=== PATIENT | female | born 1940 | race Caucasian/White ===

== ENCOUNTER 2024-04-23 06:10 | Inpatient (IN) | payer MEDICARE, SELFPAY ==
[2024-04-22 09:30] VITALS: BMI 31.7
[2024-04-23] VITALS (12 sets, daily range): BP systolic 98–134; BP diastolic 56–82; PULSE 60–92; RESP 16–20; TEMP 36.3–36.8; O2SAT 93–98; BMI 30.4; BMI 33.3
--- NOTE | 2024-04-23 06:00 | DI.RAD.S_ITS ---
PROCEDURE: XR KNEE LT 1TO2V INDICATIONS: TKA TECHNIQUE: 2 view(s) of the knee acquired. COMPARISON: None. FINDINGS: Bones: Patient is status post knee joint arthroplasty. Hardware components are in expected positions. Visualized bony structures are intact. Soft tissues: Overlying postoperative changes are noted. IMPRESSION: Expected post-operative appearance of a knee arthroplasty. Dictated by: Niya Segura MD, PhD on 04/23/2024 at 11:50 Approved by: Niya Segura MD, PhD on 04/23/2024 at 11:50
[2024-04-23] MEDS: MELOXICAM 7.5 MG TABLET 15 MG PO (07:09)
[2024-04-23] MEDS: VANCOMYCIN 1,000 MG/200 ML PIGGYBACK 200 MG IV (07:10)
[2024-04-23] MEDS: ACETAMINOPHEN 325 MG TABLET 975 MG PO (07:10)
[2024-04-23] MEDS: LACTATED RINGERS 1,000 ML 42 ML IV ×2 (07:11→08:56)
--- NOTE | 2024-04-23 07:54 | P.OP_ITS ---
Operative Date/Time/Diagnoses Date of procedure: 04/23/24 Time of procedure: 08:00 Pre-op diagnosis: left knee OA, h/o left knee medial uni Post-op diagnosis: same Procedure & Clinicians Procedure: Revision left total knee arthroplasty Same procedure as scheduled: Yes Indications: The patient has a history of left knee medial unicompartment arthroplasty in the past. She now has progressively worsening left knee pain with radiographic changes consistent with arthritis in the patellofemoral and lateral compartment. Non-operative management has failed and the patient has requested revision left total knee replacement. The risks, benefits and alternatives to surgery were discussed with the patient prior to proceeding. Risks discussed included, but were not limited to, failure to relieve pain, stiffness, infection, nerve damage, deep venous thrombosis, pulmonary embolism, stroke, coma, heart attack, permanent paralysis and , as well as the potential need for eventual revision of the prosthetic. Surgeon: Veronica Restrepo Scrap Baler: Clemente Murdock Anesthesia Type: General, Spinal and Peripheral nerve block Operative Notes Findings: Severe left knee osteoarthritis, no evidence of loosening minimal unicompartment where Closure Type: primary Specimen(s): none sent Prosthetic devices, grafts, tissues, transplants, or devices: [facility] 2 size 5 femur, size 4 tibia, +11 poly, 32 x 7-1/2 mm patella Estimated Blood Loss (mL): 250 Blood products transfused: none Tourniquet time (min): 130 Procedure in detail: The patient was seen in the pre-operative area, where the patient identified the left knee as the operative site and this was marked with my initials. The patient received pre-operative antibiotics, and was taken to the operating room and placed on the operative table in the supine position. After satisfactory anesthesia, a time clock repairer out was performed. The left leg was encircled with a tourniquet about the proximal thigh, and the leg was prepared from the toes to the tourniquet with ChloroPrep in the usual fashion and draped through sterile drapes. The leg was elevated and exsanguinated with Eschmark bandage and the tourniquet inflated to [250] mmHg pressure. A PA was used during the procedure and was essential for intraoperative retraction and safe implantation of the components. The knee was approached through an approximately 18 cm incision centered over the patella and carried into the knee through a medial parapatellar arthrotomy. Portion of the medial and lateral meniscus was resected. Soft tissue was carefully mobilized around the patella the patella was measured with a caliper. Bone was resected from the patella and the patellar height was reconstituted with up an appropriate sized patellar component. A cover was then placed on the patella. A small amount of additional lateral meniscus was resected. Soft tissues around the unicompartment replacement were meticulously cleaned from unicompartment. A saw was used to lightly loosened the tibial component and the femoral component. Pins were placed for robotic navigation. A plan was taken and meticulously developed. We placed the patient through a range of motion exercise. We plotted the plan with the components on marking where the anticipated femoral resection from the medial side would be after component removal. The femoral component and tibial component were carefully removed with minimal bone loss. Deep cultures were taken from underneath the femoral component and underneath the tibial component and a mixed specimen for PCR. The robotic assisted bur was used to resect the lateral femoral condyle distal femoral cut notch region and a small portion from the medial side of the medial femoral condyle. There was some slight bone loss off of the medial side but not severe. The navigated size 5 in 1 cutting block was carefully pinned to the femur. It looked like an appropriate distal femoral cut and the cut was made without difficulty. There was some bone bone loss on the medial aspect of the femur. There was no significant bone loss for the distal femoral resection. The rotation was assessed and the appropriate size femoral guide was placed on the distal femur and finishing cuts were made. There was no evidence of notching. The anterior, posterior and chamfer cuts were then made. The posterior osteophytes and soft tissues were then removed. The posterior capsule was injected with part of a mixture of 60 ml 0.25% Marcaine mixed with 20 ml Exparel for post operative pain control. The remainder of this mixture was injected into the capsule and subcutaneous tissues during cement curing. There was a small amount of loss of bone from the medial femoral condyle distal and posterior but not significant there was an adequate posterior femoral cut on the medial side. The tibia was carefully navigated. We placed a single pin in the lateral aspect of the tibia using navigation. And then navigated the block and pinned it to the proximal tibia. Oscillating saw was used to resect tibia. Got a good quality cut on the tibia but it looked like we should probably go about 2 mm deeper in order to give a more stable base medially. The bur was used to resect an additional 2 mm of tibia. The rotation was assessed. The patient was placed in extension residual medial and lateral meniscus as well as any residual bone was carefully resected. [No] additional tibia was resected. Hemostasis was achieved especially posteriorly. Additional local was injected into the posterior capsule. The extension gap was assessed and additional releases for gap balancing were performed as necessary. It was checked with the gap chainsaw mechanic. The femoral component was trial was placed and the notch was finished. Trial tibial and femoral components were then placed and the knee placed through a range of motion. Range of motion was [0-130], with good stability throughout the range. The trials were then removed, and the tibia was finished. The bone was prepared with pulsatile lavage, and dried with a sponge. Cement was applied and the final prosthetics placed. Excess cement was removed during and after cement curing. A brief Betadine soak was performed. After confirming there was no extruded cement posteriorly, the final tibial insert was placed. The knee was copiously irrigated and the tourniquet deflated. Hemostasis was obtained with the Bovie cautery. The capsule was closed with interrupted Vicryl. The subcutaneous layer was closed with barbed sutures, and the skin with a running 3-0 V-Lock suture and skin maile. A marifer dressing was applied and the patient was taken to recovery having tolerated the procedure well. Complications: none Post-operative Condition: stable Disposition: Acute Care Plan for aftercare: The patient will be maintained on a standard total knee replacement protocol with weight bearing as tolerated. The patient will receive aspirin and sequential compression devices for DVT prophylaxis. The patient will be discharged home when safe for the home environment.
--- NOTE | 2024-04-23 08:04 | PM.PREOP ---
Pre-operative Note Interval Note History & Physical reviewed/Exam performed by Physician: Yes Changes to H&P: No
--- NOTE | 2024-04-23 08:43 | SUR.OPER ---
Supine on padded OR bed. Pillow under head, arms secured on padded armboards <90 degree abduction. Safety belt across torso. Non-operative leg secured with tape over blanket over lower leg. Operative leg secured in DeMayo/Neeraj/Nathe positioner. Foam padded brace at thigh of operative leg.
[2024-04-23] MEDS: BUPIVACAINE 0.25% (PF) 60 ML, EPINEPHrine 0.3 MG INJ (08:47)
[2024-04-23] MEDS: BUPIVACAINE LIPOSOME 266 MG/20 ML VIAL INJ (08:47)
[2024-04-23] MEDS: TRANEXAMIC ACID 1,000 MG in SODIUM CHLORIDE 0.9% 100 ML 200 MG IV ×2 (08:48→10:53)
[2024-04-23] MEDS: CEFAZOLIN 2 GM/100 ML PREMIX 100 ML IV ×2 (08:54→16:35)
[2024-04-23] MEDS: IBUPROFEN 400 MG TABLET PO ×2 (12:03→21:03)
[2024-04-23] MEDS: OXYCODONE IR 5 MG TABLET PO ×3 (12:04→21:03)
[2024-04-23] MEDS: LACTATED RINGERS 1,000 ML 100 ML IV (12:07)
--- NOTE | 2024-04-23 12:41 | PT-IP ANOTE ---
PT order received. PT reviewed chart and checked in on pt and she is eating. Will con't PT efforts later.
[2024-04-23] MEDS: ACETAMINOPHEN 325 MG TABLET 650 MG PO (12:50)
[2024-04-23] MEDS: PRAVASTATIN 20 MG TABLET PO (16:34)
--- NOTE | 2024-04-23 17:42 | PT.IIE ---
Current Diagnoses Unilateral primary osteoarthritis, left knee (04/23/24) Presence of unspecified artificial knee joint (04/23/24) Surgery Performed Operation Date: 04/23/24 07:45 Actual Procedures p Total Knee Arthroplasty Revision - Robot, all components, uni to total(Left) - Veronica Restrepo MD Surgical History (Last Reviewed 04/23/24 @ 07:06 by Rosio Gomez, RN) History of hysterectomy History of laminectomy Hx of total knee arthroplasty Status post left partial knee replacement Medical History (Last Reviewed 04/23/24 @ 07:06 by Rosio Gomez, RN) Avascular necrosis CAD (coronary artery disease) Esophageal spasm Fibromyalgia GERD (gastroesophageal reflux disease) History of colon polyps HTN (hypertension) Hyperlipidemia Hypothyroid Knee arthropathy Multiple sclerosis Nephrolithiasis Osteopenia of lumbar spine Psoriasis Rheumatoid arthritis Spinal stenosis Physical Therapy Inpatient Evaluation/Re-Eval M1 PT/OT-IP Prior Functional Status Start: 04/23/24 12:29 Freq: NEEDED Status: Active Protocol: Document 04/23/24 17:18 MB (Rec: 04/23/24 17:42 MB [id number]) Medical Review Prior Functional Status Medical History Reviewed Yes Diet/Fluid Consistency Regular Communication WNLs Mobility and Gait 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 3 steps with two rails to enter Home Environment High Toilet,Walk in Shower Home Equipment Front Wheel Walker,Straight Cane,Manual Wheelchair,Shower Seat without Backrest,Hand Held Shower,Grab Bars In Shower Employment Status Retired M2 PT-IP Current Condition Start: 04/23/24 12:29 Freq: NEEDED Status: Active Protocol: Document 04/23/24 17:18 MB (Rec: 04/23/24 17:42 MB [id number]) Physical Therapy Current Condition Current Condition Evaluation Date 04/23/24 Treatment Diagnosis Left total knee revision M3 PT-IP Subjective Start: 04/23/24 12:29 Freq: NEEDED Status: Active Protocol: Document 04/23/24 17:18 MB (Rec: 04/23/24 17:42 MB [id number]) Subjective Physical Therapy Visit Type Type Initial Evaluation Visit Start Time 17:18 Visit Stop Time 17:30 Number of HOSPITAL CHIEF EXECUTIVE OFFICER Visits 0 Physical Therapy Visit Comments Patient Comments Pt is agreeable to PT. Therapy Pain Assessment Pain When Pain Assessed At Rest Pain Present Pain Present Pain Reported Location left knee Intensity 3 Scale Used Numeric (0 - 10) M4 PT-IP Mobility and Gait Start: 04/23/24 12:29 Freq: NEEDED Status: Active Protocol: Document 04/23/24 17:18 MB (Rec: 04/23/24 17:42 [id number]) PT-Bed Mobility Assessment Supine to Sit Supine to Sit Contact Guard Assistance Scooting Scooting to Edge of Bed Contact Guard Assistance PT-Transfer Assessment Sit to and From Stand Sit to and from Stand Contact Guard Assistance,1 Person Assistance,Use of Upper Extremities Equipment Transfer Assistive Device Gait Belt,Front Wheeled Walker Orthotic/Prosthetic Devices or Brace: No Transfers Transfer Destination Toilet Transfer Technique Ambulation Transfer Ability Level of Assist Contact Guard Assistance,1 Person Assistance,Use of Upper Extremities Comments Mobility Comments Cues to push up from the bed Gait Assessment Gait Gait Assistance Required: Contact Guard Assist Distance (Feet) 25 Able to Maintain Weight Bearing Status Yes During Gait Assistive Devices Assistive Device Gait Belt,Front Wheeled Walker Orthotic/Prosthetic Devices or Brace: No Gait Deviations General Gait Pattern Antalgic,Decreased Stride Length,Flexed Trunk,Step-to Gait,Wide Based Gait Factors Limiting Gait Function Factors Limiting Gait Function Decreased Activity Tolerance, Decreased Strength,Limited Range of Motion,Poor Balance PT-Balance Assessment Sitting Balance and Reactions Static Sitting Balance Ability Good Dynamic Sitting Balance Ability Good Standing Balance and Reactions Static Standing Balance Ability Good Dynamic Standing Balance Ability Good Device Used RW M5 PT-IP Objective Assessments Start: 04/23/24 12:29 Freq: NEEDED Status: Active Protocol: Document 04/23/24 17:18 MB (Rec: 04/23/24 17:42 [id number]) Orientation Orientation/Cognition Level of Alertness Alert Orientation Name,Age,Birthday,Month,Date, Year,Day of Week,Place, Situation Language Function Ability No Deficits Noted Safety Awareness Decreased Safety Awareness Memory Description No Deficits Noted Gross Range of Motion Upper Extremity ROM Impairments Defer to OT Lower Extremity ROM Assessment Left Impaired Impairments 0-40 deg actively in hook lying and increased passive flexion with sitting Strength Comments Strength Comments RLE functional and left ankle and hip functional, quad function in left knee and no MMT left LE today Coordination Assessment Gross Coordination Gross Coordination Impaired Sensation Assessment Sensation Gross Sensation WNL Muscle Tone Muscle Tone WNL Yes M6 PT-IP Treatment Start: 04/23/24 12:29 Freq: NEEDED Status: Active Protocol: Document 04/23/24 17:18 MB (Rec: 04/23/24 17:42 MB [id number]) Physical Therapy Treatment Exercises Exercises Ankle Pumps,Gluteal Sets,Quad Sets,Heel Slides Education Education Provided Post-Op Packet,Safety M7 PT-IP Assessment and Plan Start: 04/23/24 12:29 Freq: NEEDED Status: Active Protocol: Document 04/23/24 17:18 MB (Rec: 04/23/24 17:42 MB [id number]) PT Summary Assessment and Plan Potential Rehabilitation Potential Good Status of Condition at Evaluation Evolving Summary Impairments Pain,ROM,Strength,Balance, Coordination,Bed Mobility, Transfers,Gait,Activity Tolerance Progress Towards Goals Progressing Toward Goals Assessment Summary Pt is a pleasant 83 y/o female who is doing well same day left total knee revision. She will benefit from ongoing assistance and PT to maximize I, range and function. If she is in the hospital next date, will initiate stair training and further gait. Goals Bed Mobility Goal Independent Transfer Goal Independent,Front Wheeled Walker Gait Goal Independent,Front Wheel Walker Gait Distance 150 Other Goals Pt will ascend and descend 3 steps with two rails and no more than CGA to allow safe home entry. Frequency of Treatment Frequency Of Treatment Twice a Day Treatment Plan Physical Therapy Treatment Plan Bed Mobility Training,Transfer Training,Gait Training, Therapeutic Exercise,Balance Retraining,Post Op Education, Discharge Planning,Hot or Cold Pack,Neuromuscular Re-ed, Coordination Retraining,Manual Therapy Weight Bearing Status Weight Bearing Status Weight Bear as Tolerated Recommendations To Nursing Amount of Assist Needed 1 Person Assist Discharge Recommendations PT Discharge Recommendations Home with Assistance, Outpatient PT Transportation Needs at Discharge Private Vehicle
[2024-04-23] MEDS: DOCUSATE 100 MG CAPSULE PO (21:03)
[2024-04-23] MEDS: GABAPENTIN 100 MG CAPSULE 200 MG PO (21:03)
[2024-04-23] MEDS: FAMOTIDINE 20 MG TABLET 40 MG PO (21:03)
[2024-04-23] MEDS: ASPIRIN EC 81 MG TABLET PO (21:04)
[2024-04-24] MEDS: CEFAZOLIN 2 GM/100 ML PREMIX 100 ML IV (00:08)
[2024-04-24] MEDS: LACTATED RINGERS 1,000 ML 100 ML IV (00:08)
[2024-04-24] MEDS: ACETAMINOPHEN 325 MG TABLET 650 MG PO ×2 (00:12→08:21)
--- NOTE | 2024-04-24 02:23 | PC.NURSE ---
Addendum entered by Katie Whyte R.N. 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 Pain in left knee controlled w/ ordered pain medications. CMS intact. 1 PA w/ FWW to bathroom. Patient denies dizziness, nausea, SOB, CP. Patient behavior has been erratic, will raise voice at staff members at times and raise hand gestures to staff members' faces. Patient was found to be slid down and sideways in bed, when this RN offered to boost patient up in bed patient was agreeable, however questioned this RN when asked for assistance from another staff member. Patient stated why do you need help? are you too weak?, when explaining body mechanics to patient, patient stated the day shift people didn't need anyone. Repositioned for comfort, all needs met at this time. SCDs are on. Fall precautions in place. Oriented to call-light. Plan of care ongoing.
[2024-04-24 03:40] VITALS: BP 105/55; PULSE 67; RESP 19; TEMP 36.8; O2SAT 94
[2024-04-24] MEDS: OXYCODONE IR 10 MG TABLET PO ×2 (04:55→08:20)
[2024-04-24 06:21] LABS: Hematocrit 28.1 % (36-46); Hemoglobin 9.9 g/dL (12.0-16.0)
[2024-04-24 07:00] VITALS: BP 92/60; PULSE 104; RESP 16; TEMP 36.7; O2SAT 98
[2024-04-24] MEDS: GABAPENTIN 100 MG CAPSULE 200 MG PO (08:20)
[2024-04-24] MEDS: IBUPROFEN 400 MG TABLET PO (08:20)
[2024-04-24] MEDS: DOCUSATE 100 MG CAPSULE PO (08:20)
[2024-04-24] MEDS: LEVOTHYROXINE 100 MCG TABLET 200 MCG PO (08:20)
[2024-04-24] MEDS: FAMOTIDINE 20 MG TABLET 40 MG PO (08:21)
[2024-04-24] MEDS: ASPIRIN EC 81 MG TABLET PO (08:21)
[2024-04-24] MEDS: CHOLECALCIFEROL (VITAMIN D3) 1,000 UNIT TABLET 2000 UNIT PO (08:21)
--- NOTE | 2024-04-24 09:35 | PT.IPTN ---
Current Diagnoses Unilateral primary osteoarthritis, left knee (04/23/24) Presence of unspecified artificial knee joint (04/23/24) Surgery Performed Operation Date: 04/23/24 07:45 Actual Procedures p Total Knee Arthroplasty Revision - Robot, all components, uni to total(Left) - Veronica Restrepo MD Physical Therapy Treatment Note M2 PT-IP Current Condition Start: 04/23/24 12:29 Freq: NEEDED Status: Active Protocol: Document 04/23/24 17:18 MB (Rec: 04/23/24 17:42 MB [id number]) Physical Therapy Current Condition Current Condition Evaluation Date 04/23/24 Treatment Diagnosis Left total knee revision M3 PT-IP Subjective Start: 04/23/24 12:29 Freq: NEEDED Status: Active Protocol: Document 04/24/24 10:53 TS (Rec: 04/24/24 11:01 TS [id number]) Subjective Physical Therapy Visit Type Type Treatment Note Visit Start Time 09:35 Visit Stop Time 10:05 Number of WINDOWS 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 Therapy Pain Assessment Pain When Pain Assessed At Rest Pain Present Pain Present Pain Reported M4 PT-IP Mobility and Gait Start: 04/23/24 12:29 Freq: NEEDED Status: Active Protocol: Document 04/24/24 10:53 TS (Rec: 04/24/24 11:01 TS [id number]) PT-Transfer Assessment Sit to and From Stand Sit to and from Stand Contact Guard Assistance,1 Person Assistance,Use of Upper Extremities Equipment Transfer Assistive Device Gait Belt,Front Wheeled Walker Orthotic/Prosthetic Devices or Brace: No Comments Mobility Comments STS from chair CGA with FWW. She ambulates ~250'SBA with FWW. She performs stairs x3 with b handrails and SBA/CGA. Pt ambulates back to room. She was instructed in ther-ex. Pt was left in room, all needs met. Gait Assessment Gait Gait Assistance Required: Standby Assistance Distance (Feet) 250 Assistive Devices Assistive Device Gait Belt,Front Wheeled Walker Gait Deviations General Gait Pattern Antalgic,Decreased Stride Length,Flexed Trunk,Step-to Gait,Wide Based Gait Factors Limiting Gait Function Factors Limiting Gait Function Decreased Activity Tolerance, Decreased Strength,Limited Range of Motion,Poor Balance Stair Climbing Assessment Evaluation Level of Assist On Stairs Standby Assistance Devices Stair Climbing Assistive Devices Left Railing,Right Railing Technique/Endurance Stair Climbing Direction Ascend and Descend Stair Climbing Technique Step to Step Number of Steps Climbed 3 PT-Balance Assessment Sitting Balance and Reactions Static Sitting Balance Ability Good Dynamic Sitting Balance Ability Good Standing Balance and Reactions Static Standing Balance Ability Good Dynamic Standing Balance Ability Good Device Used FWW M5 PT-IP Objective Assessments Start: 04/23/24 12:29 Freq: NEEDED Status: Active Protocol: Document 04/23/24 17:18 MB (Rec: 04/23/24 17:42 MB [id number]) Orientation Orientation/Cognition Level of Alertness Alert Orientation Name,Age,Birthday,Month,Date, Year,Day of Week,Place, Situation Language Function Ability No Deficits Noted Safety Awareness Decreased Safety Awareness Memory Description No Deficits Noted Gross Range of Motion Upper Extremity ROM Impairments Defer to OT Lower Extremity ROM Assessment Left Impaired Impairments 0-40 deg actively in hook lying and increased passive flexion with sitting Strength Comments Strength Comments RLE functional and left ankle and hip functional, quad function in left knee and no MMT left LE today Coordination Assessment Gross Coordination Gross Coordination Impaired Sensation Assessment Sensation Gross Sensation WNL Muscle Tone Muscle Tone WNL Yes M6 PT-IP Treatment Start: 04/23/24 12:29 Freq: NEEDED Status: Active Protocol: Document 04/24/24 10:53 TS (Rec: 04/24/24 11:01 [id number]) Physical Therapy Treatment Exercises Exercises Ankle Pumps,Gluteal Sets,Quad Sets,Heel Slides Education Education Provided Post-Op Packet,Safety M7 PT-IP Assessment and Plan Start: 04/23/24 12:29 Freq: NEEDED Status: Active Protocol: Document 04/24/24 10:53 TS (Rec: 04/24/24 11:01 [id number]) PT Summary Assessment and Plan Potential Rehabilitation Potential Good Summary Impairments Pain,ROM,Strength,Balance, Coordination,Bed Mobility, Transfers,Gait,Activity Tolerance Progress Towards Goals Progressing Toward Goals Assessment Summary Radha is making good progress with her mobility. She progressed her gait to ~250' SBA with FWW. She performed stairs x3 with B handrails, has no LOB or buckling. PT is recommending home with assist . Goals Bed Mobility Goal Independent Transfer Goal Independent,Front Wheeled Walker Gait Goal Independent,Front Wheel Walker Gait Distance 150 Other Goals Pt will ascend and descend 3 steps with two rails and no more than CGA to allow safe home entry. Frequency of Treatment Frequency Of Treatment Twice a Day Treatment Plan Physical Therapy Treatment Plan Bed Mobility Training,Transfer Training,Gait Training, Therapeutic Exercise,Balance Retraining,Post Op Education, Discharge Planning,Hot or Cold Pack,Neuromuscular Re-ed, Coordination Retraining,Manual Therapy Weight Bearing Status Weight Bearing Status Weight Bear as Tolerated Recommendations To Nursing Amount of Assist Needed 1 Person Assist Discharge Recommendations PT Discharge Recommendations Home with Assistance, Outpatient PT Transportation Needs at Discharge Private Vehicle
[2024-04-24 11:00] VITALS: BP 99/66; PULSE 102; RESP 16; TEMP 36.6; O2SAT 94
--- NOTE | 2024-04-24 11:34 | OT.IP.EVAL ---
Current Diagnoses Unilateral primary osteoarthritis, left knee (04/23/24) Presence of unspecified artificial knee joint (04/23/24) Surgery Performed Operation Date: 04/23/24 07:45 Actual Procedures p Total Knee Arthroplasty Revision - Robot, all components, uni to total(Left) - Veronica Restrepo MD Past Medical History (Last Reviewed 04/23/24 @ 07:06 by Rosio Gomez, RN) Avascular necrosis CAD (coronary artery disease) Esophageal spasm Fibromyalgia GERD (gastroesophageal reflux disease) History of colon polyps HTN (hypertension) Hyperlipidemia Hypothyroid Knee arthropathy Multiple sclerosis Nephrolithiasis Osteopenia of lumbar spine Psoriasis Rheumatoid arthritis Spinal stenosis Surgical History (Last Reviewed 04/23/24 @ 07:06 by Rosio Gomez, RN) History of hysterectomy History of laminectomy Hx of total knee arthroplasty Status post left partial knee replacement Occupational Therapy Inpatient Evaluation/Re-Eval M1 PT/OT-IP Prior Functional Status Start: 04/23/24 12:29 Freq: NEEDED Status: Active Protocol: Document 04/24/24 12:10 [facility] (Rec: 04/24/24 12:23 [facility] [id number]) Medical Review Prior Functional Status Medical History Reviewed Yes Diet/Fluid Consistency Regular Communication WNLs Mobility and Gait 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 3 steps with two rails to enter Home Environment High Toilet,Walk in Shower Home Equipment Front Wheel Walker,Straight Cane,Manual Wheelchair,Bedside Commode,Shower Seat without Backrest,Hand Held Shower,Grab Bars In Shower Employment Status Retired M2 OT-IP Current Condition Start: 04/24/24 12:10 Freq: Status: Active Protocol: Document 04/24/24 12:10 [facility] (Rec: 04/24/24 12:23 [facility] [id number]) Occupational Therapy Current Condition Current Condition Evaluation Date 04/24/24 Treatment Diagnosis S/P revision L TKA Diagnosis Onset Date 04/23/24 M3 OT- IP Subjective and Pain Start: 04/24/24 12:10 Freq: Status: Active Protocol: Document 04/24/24 12:10 [facility] (Rec: 04/24/24 12:23 [facility] [id number]) OT- Subjective Occupational Therapy Visit Type Type Initial Evaluation Visit Start Time 11:00 Visit Stop Time 11:34 Occupational Therapy Visit Comments Patient Comments Pt agreed to get dressed and use the bathroom. Patient/Caregiver Goals TO go home. OT Pain Assessment Pain When Pain Assessed At Rest Pain Present Pain Present Denied Pain M4 OT- IP ADL's Start: 04/24/24 12:10 Freq: Status: Active Protocol: Document 04/24/24 12:10 [facility] (Rec: 04/24/24 12:23 [facility] [id number]) OT WUK-Elrb-Kpbvoof Comments OT Self-Feeding Comments Not performed. OT ADL-Grooming Comments OT Grooming Comments NOt performed. OT ADL-Oral Care Comments Oral Care Comments Not performed. OT ADL-Dressing General Eval Upper Body Dressing Ability Independent Lower Body Dressing Ability Maximum Assistance Comments OT Dressing Comments Assist for socks, shoes,brief, and pants. Educated and practiced use of LB dressing equipment and that pt insists to help. Educated to dress the LLE first and take out last. OT ADL-Toileting General Evaluation Toileting Ability Moderate Assistance Comments OT Toileting Comments Assist for clothing, educated pt to be mindful of her left knee positioning needs. M5 OT- IP IADL's Start: 04/24/24 12:10 Freq: Status: Active Protocol: Document 04/24/24 12:10 [facility] (Rec: 04/24/24 12:23 [facility] [id number]) OT-Instrumental Activities of Daily Living Deficits IADL Deficits Identified Deficits Home Safety Awareness Home Safety Comments Pt has a supportive to assist as pt is a little impulsive and decreased safety awareness. Meal Preparation Meal Preparation Caregiver Provides Assist Concrete Gun Operator Concrete Gun Operator Caregiver Provides Assist M6 OT- IP Functional Cognition Start: 04/24/24 12:10 Freq: Status: Active Protocol: Document 04/24/24 12:10 [facility] (Rec: 04/24/24 12:23 [facility] [id number]) Cognitive Factors Limiting Selfcare Function Cognitive Ability Level of Alertness Alert Patient Orientation Name,Age,Birthday,Month,Date, Year,Day of Week,Place, Situation Attention Span Ability Capable of Focused Attention, Capable of Sustained Attention Ability to Follow Commands Able to Follow One Step Commands Safety Awareness Underestimates Need for Assistance Cognitive Comments Cognitive Assessment Comments VC to slow down, pt is a little impulsive and very distracted. Pt needing lots of cues for safety awareness with use the of FWW. M7 OT- IP Mobility and Balance Start: 04/24/24 12:10 Freq: Status: Active Protocol: Document 04/24/24 12:10 [facility] (Rec: 04/24/24 12:23 [facility] [id number]) OT-Transfer Assessment Sit to and From Stand Sit to and from Stand Contact Guard Assistance Transfers Transfer Ability Contact Guard Assistance Technique Transfer Destination Chair,Toilet Devices Transfer Assistive Devices Gait Belt,Front Wheeled Walker Comments Mobility Comments BP legs up in chair 99/66, sitting and legs down 93/52 , and after use of bathroom while standing 128/76. Pt had slight loss of balance and pt' s able to assist her with the gait belt on with good safety. OT- Balance Assessment Sitting Balance and Reactions Static Sitting Balance Ability Good Dynamic Sitting Balance Ability Good Standing Balance and Reactions Static Standing Balance Ability Fair Dynamic Standing Balance Ability Fair M8 OT- IP Objective Assessments Start: 04/24/24 12:10 Freq: Status: Active Protocol: Document 04/24/24 12:10 [facility] (Rec: 04/24/24 12:23 [facility] [id number]) OT Gross Range of Motion Upper Extremity Range of Motion Assessment Right Impaired ROM Impairments Pt has arthritis OT Strength Upper Extremity Strength Assessment Bilaterally Impaired M9 OT- IP Assessment and Plan Start: 04/24/24 12:10 Freq: Status: Active Protocol: Document 04/24/24 12:10 [facility] (Rec: 04/24/24 12:23 [facility] [id number]) OT Summary Assessment and Plan Potential Rehabilitation Potential Good Analytic Complexity at Evaluation Low Goals Self-Feeding Goal Independent Grooming Goal Independent Dressing Goal Minimal Assistance Toileting Goal Standby Assistance Bathing Goal Minimal Assistance Toilet Transfer Goal Independent Shower Transfer Goal Minimal Assistance Days to Meet Goals 7 Frequency of Treatment Other frequency 5x/week Treatment Plan OT Treatment Plan ADL Training,Functional Mobility,Patient/Family Education,Discharge Planning Discharge Recommendations OT Discharge Recommendations Home with 25/02 Assist Available,Outpatient PT Home Equipment Needs LB dressing equipment Transportation Needs at Discharge Private Vehicle
[2024-04-24] MEDS: TRAMADOL 50 MG TABLET PO (12:04)
--- NOTE | 2024-04-24 12:23 | CM.DANOTE ---
DCP Assessment Note: Pt is a 83yo female, resident of [place], is admitted for TKA Revision. Pt lives in a house with her , Colten. Pt's Primary Care Provider is Dr. Marco Thompson MD and insurance is [employer]. Reviewed chart and team rounds for pt's medical status and initial discharge needs. DCP met w/patient at bedside; introduced self and role. Patient was found in bed, alert and oriented, cooperative with assessment. Pt confirmed living situation and good support in . Pt expressed preference in discharge home when blood pressure stable. Pt declined any referrals to services in the community to include home health, DCP discussed requesting HH if necessary with orthopedic surgeon at follow up or with PCP. PT and OT evaluations recommending home with assistance and outpatient PT. Plan: Anticipating discharge home with spouse when medically cleared. CM team will follow closely for coordination of discharge plans. SADIE Voss Discharge Planning/Care Management CM Discharge Assessment Start: 04/24/24 12:22 Freq: Status: Active Protocol: Document 04/24/24 12:22 [facility] (Rec: 04/24/24 12:23 [id number]) Discharge Planning Assessment Assigned Senior Lead Developer NORBERT Corcoran DPOA/Assigned Designee Name Colten, Spouse Contact Information [phone] Advance Directives? Yes Advance Directives on File No History Provided By Patient,Medical Record Prior Living Arrangements House Household Members spouse Type of transporation used prior to Drives own vehicle admit Independent with ADL's Yes Is patient alert and oriented? Yes Caregiver for Another No DME Already Rented / Owned FWW / Walker,Cane Barriers to Discharge No Discharge Plan Home Referrals Initiated None needed Whiteboard Updated in Patient Room with Yes name and ext. # of Senior Lead Developer Comment [phone] Please Provide Date Initial DC 04/24/24 Assessment Was Performed Next Review Type Continued Stay Review
== END 2024-04-24 13:08 | disposition home or self-care (01) | DRG 468 ==
PROVIDERS: Admitting Provider Orthopaedic Surgery; PCP Family Medicine; Referring Provider Orthopaedic Surgery; Visit Provider Orthopaedic Surgery
PROC: 0SRD0J9 Replacement of Left Knee Joint with Synthetic Substitute, Cemented, Open Approach (ICD-10-PCS; principal; 2024-04-23 07:45)
DX: M17.12 Unilateral primary osteoarthritis, left knee (principal); E03.9 Hypothyroidism, unspecified; I25.10 Atherosclerotic heart disease of native coronary artery without angina pectoris; I10 Essential (primary) hypertension; Z96.652 Presence of left artificial knee joint
CPT/HCPCS: 36415; 73560; 85014; 85018; 87070; 87075; 87176; 87205; 87801; 97116; 97161; 97165; 97530; 97535; C1776; A9270; C9290; J0171; J0330; J0690; J1100; J2405; J2704; J3010